=== PATIENT | male | born 1995 | race Caucasian/White ===

== ENCOUNTER 2016-07-05 01:54 | Emergency (ER) | payer OTHER ==
[2016-07-05 02:02] VITALS: RESP 16
[2016-07-05] MEDS ORDERED: DEXAMETHASONE 10 MG/ML VIAL IVP ONE (02:42)
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
[2016-07-05 03:53] VITALS: BP 121/75; PULSE 83; TEMP 97.9; O2SAT 98
== END 2016-07-05 03:55 ==
DX: S80.01XA Contusion of right knee, initial encounter (principal); S80.02XA Contusion of left knee, initial encounter; J02.9 Acute pharyngitis, unspecified; G47.00 Insomnia, unspecified; T74.21XA Adult sexual abuse, confirmed, initial encounter; Y08.89XA Assault by other specified means, initial encounter
CPT/HCPCS: 80305; 96374